=== PATIENT | male | born 1945 | race Caucasian/White ===

== ENCOUNTER 2022-11-25 15:36 | Inpatient (IN) | payer MEDICARE, MEDICAID ==
[~2022-11-25] VITALS: Ht 167.6 cm; Wt 51.3 kg
[2022-11-25 17:44] LABS: HEMOGLOBIN. 10.1 g/dL (14.0-18.0); MEAN CORPUSCULAR HEMOGLOBIN 28.9 pg (28.0-32.0); MEAN CORPUSCULAR VOLUME 88.7 fL (80.0-94.0); MEAN PLATELET VOLUME 7.9 fl (7.4-10.4); PLATELET 420 x1000/uL (130-400); RED BLOOD CELL COUNT 3.49 mill/uL (4.7-6.1); RED CELL DISTRIBUTION WIDTH 15.1 % (11.6-14.6)
[2022-11-25 17:48] LABS: CHLORIDE 122 mEq/L (98-107)
[2022-11-25 17:48] LABS: BG BASE EXCESS -0.8 mmol/L (-2.0-2.0); BG CARBOXYHEMOGLOBIN 0.3 % (0.5-1.5); BG DEOXYHEMOGLOBIN 2.3 % (0.0-5.0); BG FRACTION INSPIRED OXYGEN 100; BG HCO3 ACT 24.2 mmol/L (22.0-26.0); BG METHEMOGLOBIN 0.3 % (0.0-1.5); BG OXYGEN SATURATION 97.7 % (92.0-98.5); BG OXYHEMOGLOBIN 97.1 % (94.0-97.0); BG PCO2 41.8 mmHg (35.0-45.0); BG PH 7.381 (7.350-7.450); BG PO2 110.4 mmHg (75.0-100.0); BG SAMPLE SITE RIGHT RADIAL; BG TOTAL HEMOGLOBIN 9.7 g/dL (12.0-18.0); BG VENT MODE MASK - NRB
[2022-11-25 17:56] LABS: BETA HYDROXYBUTYRATE 0.2 mMol/L (0.0-0.3)
[2022-11-25] MEDS ORDERED: SODIUM CHLORIDE 0.9% 1,000 ML IV ONE (18:15)
[2022-11-25 18:52] LABS: PLATELET ESTIMATE NORMAL
[2022-11-25] MEDS ORDERED: INSULIN REGULAR (HUMULIN R) 300UNITS/3ML VIAL SUBCUT ONE (21:45)
[2022-11-25] MEDS ORDERED: CEFTRIAXONE 1GM PREMIX 50 ML IV ONE (21:45)
[2022-11-25 22:34] LABS: CLARITY URINE CLEAR (CLEAR); COLOR URINE YELLOW (YELLOW); KETONES URINE NEGATIVE (NEGATIVE); LEUKOCYTE ESTERASE URINE 2+ (NEGATIVE); NITRITE URINE NEGATIVE (NEGATIVE); OCCULT BLOOD URINE 1+ (NEGATIVE); PH URINE 5.5 (4.5-8.0); PROTEIN URINE 2+ (NEGATIVE); SPECIFIC GRAVITY URINE 1.018 (1.005-1.030); UROBILINOGEN URINE 0.2 E.U./dL (0.2-1.0)
[2022-11-25] MEDS ORDERED: INSULIN REGULAR (HUMULIN R) 300UNITS/3ML VIAL SUBCUT NR (23:45)
[2022-11-26 04:07] VITALS: BP 161/86
[2022-11-26] MEDS: BLOOD SUGAR DIAGNOSTIC STRIP TEST SCH ×4 (07:28→21:22)
[2022-11-26] MEDS: INSULIN LISPRO 100 UNITS/ML SUBCUT SCH ×4 (07:28→21:21)
[2022-11-26] MEDS ORDERED: SODIUM CHLORIDE 0.9% 1,000 ML IV SCH (08:00)
[2022-11-26 08:10] VITALS: BP 132/64
[2022-11-26 09:45] LABS: HEMATOCRIT. 30.5 % (42.0-52.0); HEMOGLOBIN. 10.1 g/dL (14.0-18.0); MEAN CORPUSCULAR HEMOGLOBIN 29.2 pg (28.0-32.0); MEAN PLATELET VOLUME 7.9 fl (7.4-10.4); PLATELET 415 x1000/uL (130-400); RED BLOOD CELL COUNT 3.46 mill/uL (4.7-6.1); RED CELL DISTRIBUTION WIDTH 14.9 % (11.6-14.6)
[2022-11-26 09:56] LABS: CHLORIDE 129 mEq/L (98-107)
[2022-11-26 10:11] LABS: BG BASE EXCESS -0.1 mmol/L (-2.0-2.0); BG CARBOXYHEMOGLOBIN 0.3 % (0.5-1.5); BG DEOXYHEMOGLOBIN 8.9 % (0.0-5.0); BG FRACTION INSPIRED OXYGEN 44; BG HCO3 ACT 24.6 mmol/L (22.0-26.0); BG METHEMOGLOBIN 0.1 % (0.0-1.5); BG OXYGEN SATURATION 91.1 % (92.0-98.5); BG OXYHEMOGLOBIN 90.7 % (94.0-97.0); BG PCO2 40.2 mmHg (35.0-45.0); BG PH 7.405 (7.350-7.450); BG PO2 59.6 mmHg (75.0-100.0); BG SAMPLE SITE RIGHT BRACHIAL; BG TOTAL HEMOGLOBIN 10.5 g/dL (12.0-18.0); BG VENT MODE NASAL CANNULA
[2022-11-26] MEDS ORDERED: IPRATROPIUM/ALBUTEROL 0.5-3(2.5)MG/3ML NEB HHN PRN (11:00)
[2022-11-26] MEDS ORDERED: CEFTRIAXONE 1GM PREMIX 50 ML IV SCH (11:00)
[2022-11-26] MEDS ORDERED: INSULIN GLARGINE 100 UNITS/ML SUBCUT NR (11:00)
[2022-11-26] MEDS: DEXTROSE 5% WATER 1,000 ML IV SCH (11:58)
[2022-11-26] MEDS: AZITHROMYCIN 500 MG in DEXT 5% WATER 250 ML IV SCH (11:59)
[2022-11-26 12:10] VITALS: BP 132/76
[2022-11-26 14:15] LABS: PLATELET ESTIMATE INCREASED
[2022-11-26 16:15] VITALS: BP 142/76
[2022-11-26] MEDS: CEFTRIAXONE 1,000 MG in DEXTROSE 5% WATER 50 ML IV SCH (16:17)
[2022-11-26 20:00] VITALS: BP 147/74
[2022-11-26] MEDS: INSULIN GLARGINE 100 UNITS/ML SUBCUT SCH (21:21)
[2022-11-27] VITALS (7 sets, daily range): BP systolic 123–165; BP diastolic 82–92
[2022-11-27] MEDS: DEXTROSE 5% WATER 1,000 ML IV SCH ×2 (02:27→12:19)
[2022-11-27] MEDS: INSULIN LISPRO 100 UNITS/ML SUBCUT SCH ×4 (05:46→21:00)
[2022-11-27] MEDS: BLOOD SUGAR DIAGNOSTIC STRIP TEST SCH ×4 (05:47→21:57)
[2022-11-27 05:56] LABS: HEMATOCRIT. 27.9 % (42.0-52.0); HEMOGLOBIN. 9.8 g/dL (14.0-18.0); MEAN CORPUSCULAR HEMOGLOBIN 30.1 pg (28.0-32.0); MEAN CORPUSCULAR VOLUME 85.6 fL (80.0-94.0); MEAN PLATELET VOLUME 8.1 fl (7.4-10.4); PLATELET 415 x1000/uL (130-400); RED BLOOD CELL COUNT 3.26 mill/uL (4.7-6.1); RED CELL DISTRIBUTION WIDTH 15.1 % (11.6-14.6)
[2022-11-27] MEDS: INSULIN GLARGINE 100 UNITS/ML SUBCUT SCH ×2 (09:19→23:24)
[2022-11-27] MEDS: AZITHROMYCIN 500 MG in DEXT 5% WATER 250 ML IV SCH (12:18)
[2022-11-27 14:18] LABS: BG CARBOXYHEMOGLOBIN 0.2 % (0.5-1.5); BG DEOXYHEMOGLOBIN 13.2 % (0.0-5.0); BG FRACTION INSPIRED OXYGEN 40; BG HCO3 ACT 25.3 mmol/L (22.0-26.0); BG OXYGEN SATURATION 86.8 % (92.0-98.5); BG OXYHEMOGLOBIN 86.6 % (94.0-97.0); BG PCO2 39.4 mmHg (35.0-45.0); BG PH 7.426 (7.350-7.450); BG PO2 49.6 mmHg (75.0-100.0); BG SAMPLE SITE RIGHT RADIAL; BG TOTAL HEMOGLOBIN 11.6 g/dL (12.0-18.0); BG VENT MODE NASAL CANNULA
[2022-11-27] MEDS ORDERED: FUROSEMIDE 40MG/4ML VIAL IVP NR (15:00)
[2022-11-27] MEDS: CEFTRIAXONE 1,000 MG in DEXTROSE 5% WATER 50 ML IV SCH (17:31)
[2022-11-28] VITALS (17 sets, daily range): BP systolic 79–156; BP diastolic 47–82
[2022-11-28] MEDS: DEXTROSE 5% WATER 1,000 ML IV SCH ×2 (02:34→16:20)
[2022-11-28] MEDS ORDERED: DILTIAZEM HCL 5MG/ML 5ML VIAL IV NR (06:45)
[2022-11-28] MEDS ORDERED: DIGOXIN 500MCG/2ML AMP IV NR (06:45)
[2022-11-28 07:29] LABS: PLATELET ESTIMATE SLIGHTLY INCREASED
[2022-11-28] MEDS: BLOOD SUGAR DIAGNOSTIC STRIP TEST SCH ×4 (07:49→21:56)
[2022-11-28] MEDS: INSULIN LISPRO 100 UNITS/ML SUBCUT SCH ×4 (07:49→21:00)
[2022-11-28] MEDS: INSULIN GLARGINE 100 UNITS/ML SUBCUT SCH ×2 (10:00→21:58)
[2022-11-28] MEDS ORDERED: SODIUM CHLORIDE 0.9% 250 ML IV SCH (10:00)
[2022-11-28] MEDS ORDERED: SODIUM CHLORIDE 0.9% 1000ML BAG (SEPSIS BOLUS) IV ONE (10:00)
[2022-11-28] MEDS ORDERED: DIGOXIN 500MCG/2ML AMP IV PRN (13:00)
[2022-11-28 13:13] LABS: BG BASE EXCESS -1.9 mmol/L (-2.0-2.0); BG CARBOXYHEMOGLOBIN 0.3 % (0.5-1.5); BG DEOXYHEMOGLOBIN 2.8 % (0.0-5.0); BG FRACTION INSPIRED OXYGEN 60; BG METHEMOGLOBIN 0.3 % (0.0-1.5); BG OXYGEN SATURATION 97.2 % (92.0-98.5); BG OXYHEMOGLOBIN 96.6 % (94.0-97.0); BG PCO2 34.2 mmHg (35.0-45.0); BG PH 7.426 (7.350-7.450); BG PO2 99.2 mmHg (75.0-100.0); BG SAMPLE SITE RIGHT BRACHIAL; BG TOTAL HEMOGLOBIN 9.8 g/dL (12.0-18.0); BG VENT MODE MASK - SIMPLE
[2022-11-28] MEDS: MIDODRINE HCL 5MG TABLET NG SCH ×2 (14:06→21:56)
[2022-11-28] MEDS: AZITHROMYCIN 500 MG in DEXT 5% WATER 250 ML IV SCH (14:07)
[2022-11-28] MEDS: PIPERACILLIN/TAZOBACTAM 3.375G in DEXT 5% WATER 50ML IV SCH ×2 (16:00→22:02)
[2022-11-28] MEDS ORDERED: PIPERACILLIN/TAZOBACTAM 3.375 G in DEXTROSE 5% WATER 50 ML IV SCH (21:00)
[2022-11-29] VITALS (12 sets, daily range): BP systolic 88–156; BP diastolic 51–80
[2022-11-29] MEDS: DEXTROSE 5% WATER 1,000 ML IV SCH ×2 (04:40→23:21)
[2022-11-29] MEDS: MIDODRINE HCL 5MG TABLET NG SCH ×3 (04:40→23:21)
[2022-11-29] MEDS: PIPERACILLIN/TAZOBACTAM 3.375G in DEXT 5% WATER 50ML IV SCH ×3 (06:08→23:20)
[2022-11-29 06:54] LABS: BASOPHILS % 0.2 % (0.0-2.0); EOSINOPHILS % 0.6 % (0.0-5.0); HEMATOCRIT. 26.3 % (42.0-52.0); HEMOGLOBIN. 8.9 g/dL (14.0-18.0); LYMPHOCYTES % 7.2 % (20.0-50.0); MEAN CORPUSCULAR HEMOGLOBIN 28.9 pg (28.0-32.0); MEAN CORPUSCULAR VOLUME 85.4 fL (80.0-94.0); MEAN PLATELET VOLUME 8.3 fl (7.4-10.4); MONOCYTES % 2.5 % (2.0-8.0); NEUTROPHILS % 89.5 % (40.0-76.0); PLATELET 413 x1000/uL (130-400); RED BLOOD CELL COUNT 3.08 mill/uL (4.7-6.1)
[2022-11-29 07:14] LABS: CHLORIDE 112 mEq/L (98-107)
[2022-11-29] MEDS: INSULIN LISPRO 100 UNITS/ML SUBCUT SCH ×4 (07:43→23:22)
[2022-11-29] MEDS: BLOOD SUGAR DIAGNOSTIC STRIP TEST SCH ×4 (07:43→21:00)
[2022-11-29 08:57] LABS: DIGOXIN 1.3 ng/mL (0.9-2.0)
[2022-11-29] MEDS: INSULIN GLARGINE 100 UNITS/ML SUBCUT SCH ×2 (10:08→23:22)
[2022-11-29] MEDS ORDERED: POTASSIUM CHLORIDE 20MEQ/PACKET NG NR (14:00)
[2022-11-29] MEDS: IPRATROPIUM/ALBUTEROL 0.5-3(2.5)MG/3ML NEB HHN SCH ×2 (14:16→22:03)
[2022-11-29 16:51] LABS: BG BASE EXCESS -0.8 mmol/L (-2.0-2.0); BG CARBOXYHEMOGLOBIN 0.3 % (0.5-1.5); BG DEOXYHEMOGLOBIN 3.6 % (0.0-5.0); BG FRACTION INSPIRED OXYGEN 60; BG HCO3 ACT 23.3 mmol/L (22.0-26.0); BG METHEMOGLOBIN 0.1 % (0.0-1.5); BG OXYGEN SATURATION 96.4 % (92.0-98.5); BG PCO2 36.3 mmHg (35.0-45.0); BG PH 7.426 (7.350-7.450); BG PO2 92.1 mmHg (75.0-100.0); BG SAMPLE SITE RIGHT BRACHIAL; BG TOTAL HEMOGLOBIN 8.6 g/dL (12.0-18.0); BG VENT MODE MASK - SIMPLE
[2022-11-30] VITALS (12 sets, daily range): BP systolic 103–153; BP diastolic 49–70
[2022-11-30] MEDS: IPRATROPIUM/ALBUTEROL 0.5-3(2.5)MG/3ML NEB HHN SCH ×6 (00:57→21:00)
[2022-11-30] MEDS: MIDODRINE HCL 5MG TABLET NG SCH ×3 (04:21→20:00)
[2022-11-30] MEDS: PIPERACILLIN/TAZOBACTAM 3.375G in DEXT 5% WATER 50ML IV SCH ×3 (06:25→21:24)
[2022-11-30 06:56] LABS: HEMATOCRIT 22.3 % (42.0-52.0); HEMOGLOBIN 7.3 g/dL (14.0-18.0); MEAN CORPUSCULAR HEMOGLOBIN 28.4 pg (28.0-32.0); MEAN CORPUSCULAR VOLUME 85.9 fL (80.0-94.0); PLATELET 446 x1000/uL (130-400); RED BLOOD CELL COUNT 2.59 mill/uL (4.7-6.1); RED CELL DISTRIBUTION WIDTH 14.6 % (11.6-14.6)
[2022-11-30 07:10] LABS: CHLORIDE 113 mEq/L (98-107)
[2022-11-30] MEDS: BLOOD SUGAR DIAGNOSTIC STRIP TEST SCH ×4 (07:50→20:58)
[2022-11-30] MEDS: INSULIN LISPRO 100 UNITS/ML SUBCUT SCH ×4 (08:25→21:24)
[2022-11-30] MEDS ORDERED: POTASSIUM CHLORIDE 20MEQ/PACKET NG NR (10:30)
[2022-11-30] MEDS: INSULIN GLARGINE 100 UNITS/ML SUBCUT SCH ×2 (10:59→21:24)
[2022-11-30] MEDS: DEXTROSE 5% WATER 1,000 ML IV SCH (15:25)
[2022-12-01] VITALS (8 sets, daily range): BP systolic 124–165; BP diastolic 59–70
[2022-12-01] MEDS: IPRATROPIUM/ALBUTEROL 0.5-3(2.5)MG/3ML NEB HHN SCH ×6 (00:19→21:05)
[2022-12-01] MEDS: MIDODRINE HCL 5MG TABLET NG SCH ×3 (04:00→20:00)
[2022-12-01] MEDS: PIPERACILLIN/TAZOBACTAM 3.375G in DEXT 5% WATER 50ML IV SCH ×3 (05:20→22:00)
[2022-12-01] MEDS: BLOOD SUGAR DIAGNOSTIC STRIP TEST SCH ×4 (08:10→21:00)
[2022-12-01] MEDS: INSULIN LISPRO 100 UNITS/ML SUBCUT SCH ×4 (08:48→21:37)
[2022-12-01] MEDS: DEXTROSE 5% WATER 1,000 ML IV SCH ×2 (08:48→12:37)
[2022-12-01 09:33] LABS: MEAN CORPUSCULAR HEMOGLOBIN 28.8 pg (28.0-32.0); MEAN CORPUSCULAR VOLUME 85.6 fL (80.0-94.0); MEAN PLATELET VOLUME 7.8 fl (7.4-10.4); PLATELET 420 x1000/uL (130-400); RED BLOOD CELL COUNT 2.37 mill/uL (4.7-6.1); RED CELL DISTRIBUTION WIDTH 14.8 % (11.6-14.6)
[2022-12-01 09:54] LABS: HEMATOCRIT. 20.3 % (42.0-52.0); HEMOGLOBIN. 6.8 g/dL (14.0-18.0)
[2022-12-01] MEDS: INSULIN GLARGINE 100 UNITS/ML SUBCUT SCH ×2 (10:49→21:36)
[2022-12-01 12:17] LABS: PLATELET ESTIMATE SLIGHTLY INCREASED
[2022-12-01 21:47] LABS: HEMATOCRIT 20.2 % (42.0-52.0); HEMOGLOBIN 6.8 g/dL (14.0-18.0)
[2022-12-01 21:49] LABS: PROTHROMBIN TIME 10.8 sec (9.6-11.0)
[2022-12-01 22:01] LABS: FERRITIN 212 ng/mL (22-322); FOLIC ACID (FOLATE) SERUM 12.5 ng/mL (>5.38)
[2022-12-01] MEDS: CLONIDINE 0.1MG TABLET NG PRN (22:04)
[2022-12-01 22:08] LABS: TOTAL IRON BINDING CAPACITY 124 ug/dL (250-450)
[2022-12-01 22:13] LABS: VITAMIN B12 SERUM >2000 pg/mL pg/mL (211-911)
[2022-12-02] VITALS (12 sets, daily range): BP systolic 127–176; BP diastolic 54–76
[2022-12-02] MEDS: IPRATROPIUM/ALBUTEROL 0.5-3(2.5)MG/3ML NEB HHN SCH ×5 (01:44→21:27)
[2022-12-02] MEDS: MIDODRINE HCL 5MG TABLET NG SCH ×3 (04:00→20:00)
[2022-12-02] MEDS: PIPERACILLIN/TAZOBACTAM 3.375G in DEXT 5% WATER 50ML IV SCH ×3 (05:54→21:19)
[2022-12-02] MEDS: BLOOD SUGAR DIAGNOSTIC STRIP TEST SCH ×3 (06:11→17:33)
[2022-12-02] MEDS: INSULIN LISPRO 100 UNITS/ML SUBCUT SCH ×4 (07:50→21:00)
[2022-12-02] MEDS: INSULIN GLARGINE 100 UNITS/ML SUBCUT SCH ×2 (09:19→11:51)
[2022-12-02 10:50] LABS: BASOPHILS % 0.2 % (0.0-2.0); EOSINOPHILS % 1.7 % (0.0-5.0); HEMATOCRIT. 26.2 % (42.0-52.0); HEMOGLOBIN. 8.8 g/dL (14.0-18.0); LYMPHOCYTES % 11.2 % (20.0-50.0); MEAN CORPUSCULAR HEMOGLOBIN 28.9 pg (28.0-32.0); MEAN CORPUSCULAR VOLUME 86.2 fL (80.0-94.0); MEAN PLATELET VOLUME 7.4 fl (7.4-10.4); MONOCYTES % 5.7 % (2.0-8.0); NEUTROPHILS % 81.2 % (40.0-76.0); PLATELET 464 x1000/uL (130-400); RED BLOOD CELL COUNT 3.04 mill/uL (4.7-6.1); RED CELL DISTRIBUTION WIDTH 14.8 % (11.6-14.6)
[2022-12-02 10:57] LABS: PROTHROMBIN TIME 11.1 sec (9.6-11.0)
[2022-12-02 11:00] LABS: CHLORIDE 111 mEq/L (98-107)
[2022-12-02] MEDS: DEXTROSE 5% WATER 1,000 ML IV SCH (13:48)
[2022-12-03] VITALS: BP 154/77
[2022-12-03] MEDS: IPRATROPIUM/ALBUTEROL 0.5-3(2.5)MG/3ML NEB HHN SCH ×6 (00:46→20:55)
[2022-12-03] MEDS: INSULIN GLARGINE 100 UNITS/ML SUBCUT SCH ×3 (01:01→22:00)
[2022-12-03] MEDS: DEXTROSE 5% WATER 1,000 ML IV SCH (03:00)
[2022-12-03 04:00] VITALS: BP 149/80
[2022-12-03] MEDS: MIDODRINE HCL 5MG TABLET NG SCH ×3 (04:00→20:00)
[2022-12-03] MEDS: PIPERACILLIN/TAZOBACTAM 3.375G in DEXT 5% WATER 50ML IV SCH ×3 (05:01→22:28)
[2022-12-03] MEDS: BLOOD SUGAR DIAGNOSTIC STRIP TEST SCH ×4 (06:00→18:36)
[2022-12-03] MEDS: INSULIN LISPRO 100 UNITS/ML SUBCUT SCH ×4 (07:26→21:00)
[2022-12-03 08:00] VITALS: BP 169/78
[2022-12-03] MEDS: CLONIDINE 0.1MG TABLET NG PRN ×2 (09:11→22:29)
[2022-12-03 10:09] LABS: BASOPHILS % 0.1 % (0.0-2.0); EOSINOPHILS % 1.6 % (0.0-5.0); HEMATOCRIT. 24.3 % (42.0-52.0); HEMOGLOBIN. 8.3 g/dL (14.0-18.0); LYMPHOCYTES % 12.1 % (20.0-50.0); MEAN CORPUSCULAR HEMOGLOBIN 29.3 pg (28.0-32.0); MEAN CORPUSCULAR VOLUME 85.4 fL (80.0-94.0); MEAN PLATELET VOLUME 7.4 fl (7.4-10.4); MONOCYTES % 4.8 % (2.0-8.0); NEUTROPHILS % 81.4 % (40.0-76.0); PLATELET 491 x1000/uL (130-400); RED BLOOD CELL COUNT 2.84 mill/uL (4.7-6.1); RED CELL DISTRIBUTION WIDTH 14.9 % (11.6-14.6)
[2022-12-03 10:21] LABS: PROTHROMBIN TIME 10.7 sec (9.6-11.0)
[2022-12-03 12:00] VITALS: BP 150/71
[2022-12-03 16:00] VITALS: BP 155/72
[2022-12-03 20:00] VITALS: BP 163/70
[2022-12-04] VITALS: BP 155/89
[2022-12-04] MEDS ORDERED: DEXT 5%/0.9% NACL 1,000 ML IV SCH
[2022-12-04] MEDS: IPRATROPIUM/ALBUTEROL 0.5-3(2.5)MG/3ML NEB HHN SCH ×4 (00:49→12:00)
[2022-12-04 03:33] LABS: BASOPHILS % 0.3 % (0.0-2.0); EOSINOPHILS % 1.8 % (0.0-5.0); HEMATOCRIT. 23.5 % (42.0-52.0); LYMPHOCYTES % 12.7 % (20.0-50.0); MEAN CORPUSCULAR HEMOGLOBIN 28.7 pg (28.0-32.0); MEAN CORPUSCULAR VOLUME 84.5 fL (80.0-94.0); MEAN PLATELET VOLUME 6.9 fl (7.4-10.4); MONOCYTES % 4.7 % (2.0-8.0); NEUTROPHILS % 80.5 % (40.0-76.0); PLATELET 429 x1000/uL (130-400); RED BLOOD CELL COUNT 2.78 mill/uL (4.7-6.1); RED CELL DISTRIBUTION WIDTH 14.7 % (11.6-14.6)
[2022-12-04] MEDS: MIDODRINE HCL 5MG TABLET NG SCH ×3 (04:00→20:00)
[2022-12-04 05:02] LABS: PROTHROMBIN TIME 10.6 sec (9.6-11.0)
[2022-12-04] MEDS: CLONIDINE 0.1MG TABLET NG PRN (05:08)
[2022-12-04] MEDS: DEXTROSE 50% WATER 50ML SYRINGE IV PRN ×4 (05:22→23:19)
[2022-12-04] MEDS: BLOOD SUGAR DIAGNOSTIC STRIP TEST SCH ×4 (06:00→23:19)
[2022-12-04] MEDS: INSULIN LISPRO 100 UNITS/ML SUBCUT SCH ×4 (07:50→20:48)
[2022-12-04 08:00] VITALS: BP 143/67
[2022-12-04] MEDS: INSULIN GLARGINE 100 UNITS/ML SUBCUT SCH ×2 (10:11→21:26)
[2022-12-04] MEDS ORDERED: CEFAZOLIN 1000MG PREMIX 50 ML IV NR (11:00)
[2022-12-04 12:00] VITALS: BP 165/79
[2022-12-04 16:00] VITALS: BP 148/62
[2022-12-04 20:40] VITALS: BP 168/87
[2022-12-05] VITALS: BP 161/76
[2022-12-05 00:30] VITALS: BP 152/74
[2022-12-05] MEDS ORDERED: DEXT 5%/0.45% NACL 500ML 500 ML IV SCH (03:00)
[2022-12-05 03:03] LABS: BASOPHILS % 0.3 % (0.0-2.0); EOSINOPHILS % 0.8 % (0.0-5.0); HEMATOCRIT. 25.8 % (42.0-52.0); LYMPHOCYTES % 10.9 % (20.0-50.0); MEAN CORPUSCULAR HEMOGLOBIN 29.4 pg (28.0-32.0); MEAN CORPUSCULAR VOLUME 84.5 fL (80.0-94.0); MEAN PLATELET VOLUME 6.9 fl (7.4-10.4); MONOCYTES % 3.6 % (2.0-8.0); NEUTROPHILS % 84.4 % (40.0-76.0); PLATELET 447 x1000/uL (130-400); RED BLOOD CELL COUNT 3.06 mill/uL (4.7-6.1); RED CELL DISTRIBUTION WIDTH 14.7 % (11.6-14.6)
[2022-12-05 03:19] LABS: PROTHROMBIN TIME 10.9 sec (9.6-11.0)
[2022-12-05 04:00] VITALS: BP 111/72
[2022-12-05] MEDS: DEXTROSE 5% WATER 1,000 ML IV SCH ×2 (06:47→16:30)
[2022-12-05] MEDS: DEXTROSE 50% WATER 50ML SYRINGE IV PRN (06:47)
[2022-12-05] MEDS: BLOOD SUGAR DIAGNOSTIC STRIP TEST SCH ×4 (06:49→20:49)
[2022-12-05] MEDS: INSULIN LISPRO 100 UNITS/ML SUBCUT SCH ×4 (07:50→20:50)
[2022-12-05 08:00] VITALS: BP 164/83
[2022-12-05] MEDS: INSULIN GLARGINE 100 UNITS/ML SUBCUT SCH ×2 (10:00→20:50)
[2022-12-05] MEDS ORDERED: CEFAZOLIN 1000MG PREMIX 50 ML IV NR (10:00)
[2022-12-05] MEDS ORDERED: SODIUM CHLORIDE 0.9% 10ML VIAL ONE (10:19)
[2022-12-05] MEDS ORDERED: LIDOCAINE HCL 1% 10 MG/ML 10ML VIAL ONE (10:19)
[2022-12-05] MEDS ORDERED: PROPOFOL 200MG/20ML VIAL IV ONE (10:19)
[2022-12-05] MEDS ORDERED: EPHEDRINE SULFATE 50MG/ML VIAL ONE (10:19)
[2022-12-05] MEDS ORDERED: PHENYLEPHRINE HCL 10 MG/ML 1ML (IV VIAL) IV ONE (10:20)
[2022-12-05] MEDS ORDERED: ETOMIDATE 2MG/ML 10ML VIAL IV ONE (10:25)
[2022-12-05] MEDS: MIDODRINE HCL 5MG TABLET NG SCH ×2 (12:00→20:00)
[2022-12-05 16:00] VITALS: BP 155/80
[2022-12-05 20:00] VITALS: BP 180/83
[2022-12-05] MEDS: CLONIDINE 0.1MG TABLET NG PRN (21:07)
[2022-12-06] VITALS: BP 120/72
[2022-12-06] MEDS: DEXTROSE 5% WATER 1,000 ML IV SCH ×3 (00:41→12:30)
[2022-12-06 04:00] VITALS: BP 137/71
[2022-12-06] MEDS: MIDODRINE HCL 5MG TABLET NG SCH ×3 (04:00→20:00)
[2022-12-06] MEDS: METOCLOPRAMIDE HCL 10MG/2ML VIAL IV SCH ×2 (05:28→15:25)
[2022-12-06] MEDS: BLOOD SUGAR DIAGNOSTIC STRIP TEST SCH ×3 (06:00→18:59)
[2022-12-06 08:00] VITALS: BP 145/79
[2022-12-06] MEDS: INSULIN LISPRO 100 UNITS/ML SUBCUT SCH ×4 (09:32→21:00)
[2022-12-06] MEDS: INSULIN GLARGINE 100 UNITS/ML SUBCUT SCH ×2 (10:00→21:07)
[2022-12-06 12:00] VITALS: BP 103/67
[2022-12-06 16:00] VITALS: BP 102/70
[2022-12-06] MEDS ORDERED: CEFAZOLIN 1000MG PREMIX 50 ML IV NR (17:00)
[2022-12-06 18:37] VITALS: BP 102/70
[2022-12-06] MEDS: CLONIDINE 0.1MG TABLET NG PRN (21:07)
== END 2022-12-06 21:20 | disposition hospice, home (50) | DRG 871 ==
LOC: ER 15:36 → 7EST 23:27 → EDBEDREQ 23:39 → EDBEDREQTM 23:39 → 5EST 11-27 17:42 → 6EST 12-01 13:32
PROVIDERS: ADMIT Internal Medicine; ATTEND Internal Medicine
PROC: 30233N1 Transfusion of Nonautologous Red Blood Cells into Peripheral Vein, Percutaneous Approach (ICD-10-PCS; 2022-12-02)
PROC: 0DB78ZX Excision of Stomach, Pylorus, Via Natural or Artificial Opening Endoscopic, Diagnostic (ICD-10-PCS; principal; 2022-12-05)
PROC: 0DH63UZ Insertion of Feeding Device into Stomach, Percutaneous Approach (ICD-10-PCS; 2022-12-05)
DX: A41.9 Sepsis, unspecified organism (principal); E43 Unspecified severe protein-calorie malnutrition; G93.41 Metabolic encephalopathy; J18.9 Pneumonia, unspecified organism; N17.0 Acute kidney failure with tubular necrosis; J96.21 Acute and chronic respiratory failure with hypoxia; E87.0 Hyperosmolality and hypernatremia; N39.0 Urinary tract infection, site not specified; J98.11 Atelectasis; I13.0 Hypertensive heart and chronic kidney disease with heart failure and stage 1 through stage 4 chronic kidney disease, or unspecified chronic kidney disease; Z68.1 Body mass index [BMI] 19.9 or less, adult; E11.65 Type 2 diabetes mellitus with hyperglycemia; Z20.822 Contact with and (suspected) exposure to COVID-19; I50.9 Heart failure, unspecified; E78.5 Hyperlipidemia, unspecified; E88.09 Other disorders of plasma-protein metabolism, not elsewhere classified; E11.22 Type 2 diabetes mellitus with diabetic chronic kidney disease; I49.1 Atrial premature depolarization; Z66 Do not resuscitate; R62.7 Adult failure to thrive; K44.9 Diaphragmatic hernia without obstruction or gangrene; K80.70 Calculus of gallbladder and bile duct without cholecystitis without obstruction; K29.80 Duodenitis without bleeding; E11.649 Type 2 diabetes mellitus with hypoglycemia without coma; K29.00 Acute gastritis without bleeding; R13.10 Dysphagia, unspecified; D53.9 Nutritional anemia, unspecified; D63.8 Anemia in other chronic diseases classified elsewhere; N18.9 Chronic kidney disease, unspecified; I48.91 Unspecified atrial fibrillation; E87.6 Hypokalemia; Z91.199 Patient's noncompliance with other medical treatment and regimen due to unspecified reason; Z93.1 Gastrostomy status; Z96.642 Presence of left artificial hip joint; Z74.01 Bed confinement status; Z79.4 Long term (current) use of insulin
CPT/HCPCS: 36415; 36600; 71045; 74018; 74176; 80048; 80053; 80162; 81003; 82010; 82140; 82375; 82607; 82728; 82746; 82805; 82962; 83036; 83540; 83550; 84145; 84484; 85014; 85018; 85025; 85027; 85044; 86850; 86900; 86920; 87077; 87186; 87426; 88305; 93005; 93306; 93970; 94640; 99291; A6261; J0456; J0690; J0696; J1160; J1815; J1940; J2370; J2543; J2704; J2765; J3490; J7030; J7042; J7060; J7070; P9016